=== PATIENT | female | born 1990 | race Caucasian/White ===

== ENCOUNTER 2018-04-19 19:08 | Emergency (ER) | payer BC ==
[2018-04-19] MEDS ORDERED: KETOROLAC 30 MG/ML 1 ML VIAL IVP STA (19:58)
[2018-04-19] MEDS ORDERED: ONDANSETRON 4 MG/2 ML VIAL IVP STA (19:58)
[2018-04-19] MEDS ORDERED: SODIUM CHLORIDE 0.9% 1,000 ML IV STA (19:58)
--- NOTE | 2018-04-19 20:33 | ED ---
General Adult HPI - General Source: patient, RN notes reviewed Mode of arrival: ambulatory Limitations: no limitations <Tee Edge P - Last Filed: 04/19/18 21:57> <Janessa Bravo P - Last Filed: 04/19/18 23:55> - General Chief complaint: Nausea/Vomiting/Diarrhea Stated complaint: Vomiting, chest pain Time Seen by Provider: 04/19/18 19:30 - History of Present Illness Initial comments: 27-year-old female presents to the emergency department for a chief complaint of abdominal pain x months. Patient states she was diagnosed with GERD. Patient states she had a endoscopy done 5 days ago. She states that 3 days ago patient started to have worsening pain. Patient describes the pain as a burning pain in her chest and epigastric area. Patient states she also often has nausea with this pain. Patient states she did vomit about 4 times today. Patient states she tried to contact her GI doctor but was unable to speak with them. Patient denies any shortness of breath or pleuritic chest pain. Patient has no other complaints at this time including shortness of breath, chest pain, headache, or visual changes. (Tee Edge) - Related Data Home Medications Medication Instructions Recorded Confirmed Acetaminophen [Tylenol Extra 1,000 mg PO Q6H PRN 04/19/18 04/19/18 Strength] Omeprazole 20 mg PO BID 04/19/18 04/19/18 Sucralfate [Carafate] 1 gm PO TID 04/19/18 04/19/18 Previous Rx's Medication Instructions Recorded Ondansetron [Zofran ODT] 4 mg PO Q8HR PRN #15 tab 04/19/18 Allergies Allergy/AdvReac Type Severity Reaction Status Date / Time No Known Allergies Allergy Verified 04/19/18 20:36 Review of Systems ROS Other: All systems not noted in ROS Statement are negative. <Tee Edge P - Last Filed: 04/19/18 21:57> ROS Other: All systems not noted in ROS Statement are negative. <Janessa Bravo P - Last Filed: 04/19/18 23:55> ROS Statement: Those systems with pertinent positive or pertinent negative responses have been documented in the HPI. Past Medical History Past Medical History: GERD/Reflux History of Any Multi-Drug Resistant Organisms: None Reported Past Surgical History: Tonsillectomy Past Psychological History: Anxiety Smoking Status: Never smoker Past Alcohol Use History: Heavy Past Drug Use History: None Reported <Tee Edge P - Last Filed: 04/19/18 21:57> General Exam Limitations: no limitations General appearance: alert, in no apparent distress Head exam: Present: atraumatic, normocephalic, normal inspection Eye exam: Present: normal appearance, PERRL, EOMI. Absent: scleral icterus, conjunctival injection, periorbital swelling ENT exam: Present: normal exam, mucous membranes moist Neck exam: Present: normal inspection, full ROM. Absent: tenderness, meningismus, lymphadenopathy, thyromegaly Respiratory exam: Present: normal lung sounds bilaterally. Absent: respiratory distress, wheezes, rales, rhonchi, stridor Cardiovascular Exam: Present: regular rate, normal rhythm, normal heart sounds. Absent: systolic murmur, diastolic murmur, rubs, gallop, clicks GI/Abdominal exam: Present: soft, tenderness (Tenderness noted in the epigastric and right upper quadrant areas, positive Dumont sign), guarding ( Guarding present in the epigastric and right upper quadrant area), normal bowel sounds. Absent: distended, rebound, rigid Neurological exam: Present: alert, oriented X3, CN II-XII intact Psychiatric exam: Present: normal affect, normal mood <Tee Edge P - Last Filed: 04/19/18 21:57> Vital Signs 04/19/18 04/19/18 19:11 22:13 Temperature 98.8 F 98.2 F Pulse Rate 101 H 87 Respiratory 18 19 Rate Blood Pressure 113/65 113/62 O2 Sat by Pulse 99 99 Oximetry Medical Decision Making - Lab Data Result diagrams: 04/19/18 20:23 04/19/18 20:23 <Tee Edge P - Last Filed: 04/19/18 21:57> - Lab Data Result diagrams: 04/19/18 20:23 04/19/18 20:23 <Janessa Bravo P - Last Filed: 04/19/18 23:55> - Medical Decision Making 27-year-old female presents to the emergency department for a chief complaint of burning epigastric and lower chest pain 2 months. Patient sates she had a scope done last week and is currently pending biopsies of her stomach and esophagus as there was inflammation. On exam patient does have epigastric and right upper quadrant tenderness. CBC and CMP are unremarkable. Acute abdominal x-ray shows a nonacute abdomen, normal chest. No sign of intestinal obstruction or pneumoperitoneum. Ultrasound of the gallbladder is negative. No gallstones or dilated ducts. No free fluid. Patient reevaluated, feeling much better at this time. Discussed possibility of obtaining CAT scan versus waiting for biopsy results. At this time patient would like to wait for biopsy results as she is feeling better. She will return if she has any worsening symptoms. She will follow up with primary care and her GI specialist in 1-2 days. (Tee Edge) I was available for consultation in the emergency department. The history and physical exam were done by the midlevel provider. I was consulted for this patient's care. I reviewed the case with the midlevel provider and based on their presentation of the patient, I agree with the assessment, medical decision making and plan of care as documented. (Janessa Bravo) - Lab Data Lab Results 04/19/18 04/19/18 04/19/18 Range/Units 20:23 20:23 20:23 WBC 8.4 (3.8-10.6) k/uL RBC 4.75 (3.80-5.40) m/uL Hgb 14.8 (11.4-16.0) gm/dL Hct 42.3 (34.0-46.0) % MCV 89.2 (80.0-100.0) fL MCH 31.1 (25.0-35.0) pg MCHC 34.9 (31.0-37.0) g/dL RDW 12.9 (11.5-15.5) % Plt Count 156 (150-450) k/uL Neutrophils % 89 % Lymphocytes % 4 % Monocytes % 4 % Eosinophils % 1 % Basophils % 0 % Neutrophils # 7.5 (1.3-7.7) k/uL Lymphocytes # 0.4 L (1.0-4.8) k/uL Monocytes # 0.4 (0-1.0) k/uL Eosinophils # 0.1 (0-0.7) k/uL Basophils # 0.0 (0-0.2) k/uL Sodium 137 (137-145) mmol/L Potassium 4.0 (3.5-5.1) mmol/L Chloride 105 (98-107) mmol/L Carbon Dioxide 23 (22-30) mmol/L Anion Gap 9 mmol/L BUN 12 (7-17) mg/dL Creatinine 0.63 (0.52-1.04) mg/dL Est GFR (CKD-EPI)AfAm >90 (>60 ml/min/1.73 sqM) Est GFR (CKD-EPI)NonAf >90 (>60 ml/min/1.73 sqM) Glucose 108 H (74-99) mg/dL Calcium 9.5 (8.4-10.2) mg/dL Total Bilirubin 0.9 (0.2-1.3) mg/dL AST 20 (14-36) U/L ALT 32 (9-52) U/L Alkaline Phosphatase 57 (38-126) U/L Total Protein 6.8 (6.3-8.2) g/dL Albumin 4.4 (3.5-5.0) g/dL Amylase 73 (30-110) U/L Lipase 139 (23-300) U/L Urine Color Urine Appearance (Clear) Urine pH (5.0-8.0) Ur Specific Hustler (1.001-1.035) Urine Protein (Negative) Urine Glucose (UA) (Negative) Urine Ketones (Negative) Urine Blood (Negative) Urine Nitrite (Negative) Urine Bilirubin (Negative) Urine Urobilinogen (<2.0) mg/dL Ur Leukocyte Esterase (Negative) Urine RBC (0-5) /hpf Urine WBC (0-5) /hpf Ur Squamous Epith Cells (0-4) /hpf Urine Bacteria (None) /hpf Urine Mucus (None) /hpf Urine HCG, Qual Not Detected (Not Detectd) 04/19/18 Range/Units 20:23 WBC (3.8-10.6) k/uL RBC (3.80-5.40) m/uL Hgb (11.4-16.0) gm/dL Hct (34.0-46.0) % MCV (80.0-100.0) fL MCH (25.0-35.0) pg MCHC (31.0-37.0) g/dL RDW (11.5-15.5) % Plt Count (150-450) k/uL Neutrophils % % Lymphocytes % % Monocytes % % Eosinophils % % Basophils % % Neutrophils # (1.3-7.7) k/uL Lymphocytes # (1.0-4.8) k/uL Monocytes # (0-1.0) k/uL Eosinophils # (0-0.7) k/uL Basophils # (0-0.2) k/uL Sodium (137-145) mmol/L Potassium (3.5-5.1) mmol/L Chloride (98-107) mmol/L Carbon Dioxide (22-30) mmol/L Anion Gap mmol/L BUN (7-17) mg/dL Creatinine (0.52-1.04) mg/dL Est GFR (CKD-EPI)AfAm (>60 ml/min/1.73 sqM) Est GFR (CKD-EPI)NonAf (>60 ml/min/1.73 sqM) Glucose (74-99) mg/dL Calcium (8.4-10.2) mg/dL Total Bilirubin (0.2-1.3) mg/dL AST (14-36) U/L ALT (9-52) U/L Alkaline Phosphatase (38-126) U/L Total Protein (6.3-8.2) g/dL Albumin (3.5-5.0) g/dL Amylase (30-110) U/L Lipase (23-300) U/L Urine Color Light Yellow Urine Appearance Clear (Clear) Urine pH 5.5 (5.0-8.0) Ur Specific Hustler 1.008 (1.001-1.035) Urine Protein Negative (Negative) Urine Glucose (UA) Negative (Negative) Urine Ketones Trace H (Negative) Urine Blood Negative (Negative) Urine Nitrite Negative (Negative) Urine Bilirubin Negative (Negative) Urine Urobilinogen <2.0 (<2.0) mg/dL Ur Leukocyte Esterase Moderate H (Negative) Urine RBC 3 (0-5) /hpf Urine WBC 5 (0-5) /hpf Ur Squamous Epith Cells 3 (0-4) /hpf Urine Bacteria Moderate H (None) /hpf Urine Mucus Rare H (None) /hpf Urine HCG, Qual (Not Detectd) Disposition Is patient prescribed a controlled substance at d/c from ED?: No Time of Disposition: 21:58 <Tee Edge - Last Filed: 04/19/18 21:57> <Janessa Bravo P - Last Filed: 04/19/18 23:55> Clinical Impression: Abdominal pain Disposition: HOME SELF-CARE Condition: Good Instructions: Abdominal Pain (ED) Additional Instructions: Please follow up with primary care and/or GI specialist in 1-2 days. Take Zofran as needed for nausea. Continue to take your home medications prescribed by GI. Return to the emergency department if you have any worsening symptoms. Prescriptions: Ondansetron [Zofran ODT] 4 mg PO Q8HR PRN #15 tab PRN Reason: Nausea Referrals: Eren Lujan MD [Primary Care Provider] - 1-2 days Addendum entered and electronically signed by Tee Edge PAAna 04/19/18 23 :43: Normal sinus rhythm, Ventricular rate 90, OK interval 142, QTC 450
[2018-04-19 20:37] LABS: Basophils % (A) 0 %; Eosinophils # (A) 0.1 k/uL (0-0.7); Eosinophils % (A) 1 %; HCT 42.3 % (34.0-46.0); HGB 14.8 gm/dL (11.4-16.0); Lymphocytes # (A) 0.4 k/uL (1.0-4.8); Lymphocytes % (A) 4 %; MCH 31.1 pg (25.0-35.0); MCHC 34.9 g/dL (31.0-37.0); MCV 89.2 fL (80.0-100.0); Mean Platelet Volume 7.7; Monocytes # (A) 0.4 k/uL (0-1.0); Monocytes % (A) 4 %; Neutrophils # (A) 7.5 k/uL (1.3-7.7); Neutrophils % (A) 89 %; Platelet Count 156 k/uL (150-450); RBC 4.75 m/uL (3.80-5.40); RDW 12.9 % (11.5-15.5); WBC 8.4 k/uL (3.8-10.6)
[2018-04-19 20:44] LABS: ALT 32 U/L (9-52); AST 20 U/L (14-36); Albumin 4.4 g/dL (3.5-5.0); Alkaline Phosphatase 57 U/L (38-126); Amylase 73 U/L (30-110); Anion Gap 9 mmol/L; Blood Urea Nitrogen 12 mg/dL (7-17); Calcium 9.5 mg/dL (8.4-10.2); Carbon Dioxide 23 mmol/L (22-30); Chloride 105 mmol/L (98-107); Glucose 108 mg/dL (74-99); Lipase 139 U/L (23-300); Sodium 137 mmol/L (137-145); Total Bilirubin 0.9 mg/dL (0.2-1.3); Total Protein 6.8 g/dL (6.3-8.2)
[2018-04-19 20:52] LABS: Appearance,Urine Clear (Clear); Bacteria,Urine Moderate /hpf; Bilirubin,Urine Negative (Negative); Blood,Urine Negative (Negative); Color,Urine Light Yellow; Glucose,Urine (UA) Negative (Negative); Ketones,Urine Trace (Negative); Leukocyte Esterase,Urine Moderate (Negative); Mucus,Urine Rare /hpf; Nitrite,Urine Negative (Negative); PH, Urine 5.5 (5.0-8.0); Protein,Urine Negative (Negative); RBC,Urine 3 /hpf (0-5); Specific Gravity,Urine 1.008 (1.001-1.035); Squamous Epithelial Cell,Urine 3 /hpf (0-4); Urobilinogen,Urine <2.0 mg/dL (<2.0); WBC,Urine 5 /hpf (0-5)
--- NOTE | 2018-04-19 21:16 | XR ---
EXAMINATION TYPE: XR abdomen acute w cxr DATE OF EXAM: 04/19/2018 COMPARISON: NONE HISTORY: Chest pain TECHNIQUE: Chest x-ray with supine and upright abdomen FINDINGS: Heart and mediastinum are normal. Lungs are clear. Diaphragm is normal. Bony thorax appears normal. B owel gas pattern is normal. There is no sign of intestinal obstruction or pneumoperitoneum. Fecal pat tern is normal. There are no pathologic calcifications over the kidneys. IMPRESSION: Nonacute abdomen. Normal chest.
--- NOTE | 2018-04-19 21:17 | US ---
EXAMINATION TYPE: US abdomen limited DATE OF EXAM: 04/19/2018 COMPARISON: NONE CLINICAL HISTORY: Pain. Pain, nausea and vomiting. EXAM MEASUREMENTS: Liver Length: 14.3 cm Gallbladder Wall: 0.2 cm CBD: 0.4 cm Right Kidney: 9.6 x 4.3 x 3.5 cm Pancreas: wnl Liver: wnl Gallbladder: No stones seen Evidence for sonographic Dumont's sign: No CBD: wnl Right Kidney: wnl IMPRESSION: Negative right upper quadrant abdominal sonogram. No gallstones or dilated ducts. No free fluid.
[2018-04-19] MEDS ORDERED: MAG HYDROX/AL HYDROX/SIMETH 30 ML, HYOSCYAMINE ELIXIR 10 ML, CIMETIDINE HCL 300 MG, LID... PO STA ×4 (21:40)
[2018-04-19] MEDS ORDERED: ONDANSETRON 4 MG ODT STARTER PACK 2 TAB BTL PO STA (21:59)
[2018-04-19 22:16] VITALS: BP 113/62; PULSE 87; RESP 19; TEMP 98.2
== END 2018-04-19 22:13 | disposition home or self-care (01) ==
LOC: EC 19:08
DX: R10.13 Epigastric pain (principal); R11.2 Nausea with vomiting, unspecified; K21.9 Gastro-esophageal reflux disease without esophagitis; Z98.890 Other specified postprocedural states; Z79.899 Other long term (current) drug therapy
CPT/HCPCS: 36415; 93005; 80053; 82150; 83690; 85025; 81001; 81025; 87086; 74022; 76705; 99284; 96374; 96375; 96361; J2405; J1885; S0119

== ENCOUNTER → 2019-06-06 | Outpatient (CLI) | payer BC ==
--- NOTE | 2019-06-06 14:32 | US ---
EXAMINATION TYPE: US pelvic complete DATE OF EXAM: 06/06/2019 COMPARISON: NONE CLINICAL HISTORY: R10.9 abdominal pain. pelvic pain, skipping cycles TECHNIQUE: TA. Transabdominal sonographic images of the pelvis were acquired. Date of LMP: 04/30/2019, skipped May EXAM MEASUREMENTS: Uterus: 7.0 x 5.1 x 4.4 cm Endometrial Stripe: 0.9 cm Right Ovary: 3.1 x 2.3 x 2.5cm Left Ovary: 4.0 x 2.5 x 2.7cm 1. Uterus: Anteverted wnl 2. Endometrium: wnl 3. Right Ovary: wnl 4. Left Ovary: wnl 5. Bilateral Adnexa: wnl 6. Posterior cul-de-sac: wnl IMPRESSION: Unremarkable pelvic ultrasound. No abnormal endometrial thickening.
== END | disposition home or self-care (01) ==
LOC: RADUSWWP 12:50
PROVIDERS: ATTEND Family Medicine
DX: R10.9 Unspecified abdominal pain (principal)
CPT/HCPCS: 76856

== ENCOUNTER → 2020-05-04 | Outpatient (CLI) | payer BC ==
[2020-05-04 17:30] LABS: ALT 45 U/L (8-44); AST 34 U/L (13-35)
== END | disposition home or self-care (01) ==
LOC: LABWHC1 08:57
PROVIDERS: ATTEND Obstetrics & Gynecology
DX: L50.9 Urticaria, unspecified (principal)
CPT/HCPCS: 36415; 82239; 84450; 84460

== ENCOUNTER 2020-05-23 17:00 | Inpatient (IN) | payer BC ==
[2020-05-23] MEDS ORDERED: DINOPROSTONE 10 MG INSERT.ER VAGINAL ONE (19:21)
[2020-05-23] MEDS ORDERED: OXYTOCIN 10 UNIT/ML 1 ML VIAL IM PRN (20:26)
[2020-05-23] MEDS ORDERED: METHYLERGONOVINE 0.2 MG/ML 1 ML AMP IM PRN (20:26)
[2020-05-23] MEDS ORDERED: LIDOCAINE 0.5% (PF) 5 MG/ML (50 ML SDV) SQ PRN (20:26)
[2020-05-23] MEDS ORDERED: PENICILLIN G POTASSIUM 5,000,000 UNIT in DEXTROSE 5% IN WATER 100 ML IVPB STA ×2 (20:26)
[2020-05-23] MEDS ORDERED: TERBUTALINE 1 MG/ML VIAL SQ PRN (20:26)
[2020-05-23] MEDS ORDERED: CARBOPROST TROMETHAMINE 250 MCG/ML 1 ML AMP IM PRN (20:26)
[2020-05-23] MEDS ORDERED: BUTORPHANOL 1 MG/ML 1 ML VIAL IV PRN (20:28)
[2020-05-23] MEDS ORDERED: OXYTOCIN 30 UNITS/500 ML NS 30 UNIT in SALINE 1 500ML.BAG IV SCH (20:30)
--- NOTE | 2020-05-23 20:33 | P.HPOB ---
History of Present Illness H&P Date: 05/23/20 Chief Complaint: 37-0/7 weeks, cholestasis of The patient is a 29-year-old 1 para 0 admitted at 37-0/7 weeks as established by 6 week ultrasound. She is admitted for Cervidil cervical ripening and possible Pitocin induction for the diagnosis of cholestasis of which was discovered earlier this week. testing has been reassuring and there is a category 1 heart rate tracing currently. Her has otherwise been uncomplicated though she is known to be group B strep positive. Obstetrical history: 1 para 0 with current statistics listed in history present illness. EDC of 06/13/2020 was established by 6 week ultrasound. Laboratory workup demonstrates a blood type of O+ with a negative antibody screen. Rubella status is immune. The remainder of the laboratory workup was within normal limits. One hour Glucola was elevated but followed by a normal three-hour glucose tolerance test. Group B strep status is negative. Gynecologic history: Unremarkable with no history of any infections to include STDs. Review of Systems Review of systems is confined to history of present illness. Past Medical History Past Medical History: GERD/Reflux History of Any Multi-Drug Resistant Organisms: None Reported Past Surgical History: Tonsillectomy Additional Past Surgical History / Comment(s): Aroda teeth. Past Anesthesia/Blood Transfusion Reactions: No Reported Reaction Past Psychological History: Anxiety Smoking Status: Never smoker Past Alcohol Use History: Heavy Past Drug Use History: None Reported - Past Family History Father Family Medical History: Diabetes Mellitus Medications and Allergies Home Medications Medication Instructions Recorded Confirmed Type Acetaminophen [Tylenol Extra 1,000 mg PO Q6H PRN 04/19/18 05/23/20 History Strength] Omeprazole 20 mg PO BID 04/19/18 05/23/20 History Allergies Allergy/AdvReac Type Severity Reaction Status Date / Time No Known Allergies Allergy Verified 05/23/20 19:19 Exam Vital Signs Temp Pulse Resp BP Pulse Ox 05/23/20 19:21 96.8 F L 90 16 128/73 97 05/23/20 19:18 96.8 F L 90 16 128/73 97 Intake and Output 05/23/20 05/23/20 05/23/20 06:59 14:59 22:59 Other: Weight 63.503 kg In general, this is a well-developed, well-nourished white female in no acute distress. Her heart has a regular rhythm and rate without murmur. Her lungs are clear to auscultation bilaterally in all kam. Her abdomen is gravid, nondistended, has normal active bowel sounds, soft, nontender, and without any palpable masses aside from uterine fundus. Her extremities are without any cyanosis, clubbing, or edema and are nontender to palpation bilaterally. Digital cervical examination demonstrates her cervix to be fingertip, 70% effac ed, with the vertex in presentation at -2 station. The cervix is extremely posterior and difficult to reach. Cervidil is placed in the posterior cul-de-sac per protocol. Assessment and Plan (1) Cholestasis of Current Visit: Yes Status: Acute Code(s): O26.619 - LIVER AND BILIARY TRACT DISORD IN , UNSP TRIMESTER; K83.1 - OBSTRUCTION OF BILE DUCT SNOMED Code(s): 819383247 (2) Group B streptococcal infection in Current Visit: Yes Status: Acute Code(s): O98.819 - OTH MATERNAL INFEC/PARASTC DISEASES COMP PREG, UNSP TRI; B95.1 - STREPTOCOCCUS, GROUP B, CAUSING DISEASES CLASSD [id number] SNOMED Code(s): 047879268 (3) Term Current Visit: Yes Status: Acute Code(s): Z34.90 - ENCNTR FOR SUPRVSN OF NORMAL , UNSP, UNSP TRIMESTER SNOMED Code(s): 56198052 Plan: The patient is admitted for Cervidil cervical ripening to be followed by Pitocin if necessary. Risks and, occasions the procedure been thoroughly discussed and she has understood and agreed to proceed. Cervidil has been placed and we will plan to begin Pitocin at 0600 hrs. should it be necessary. She will have close maternal and surveillance and expectant management will be practiced. She is a good candidate for either IV or epidural analgesia, whichever she may choose. Group B strep prophylaxis will be started with the onset of labor.
[2020-05-23 20:52] LABS: Basophils % (A) 0 %; Eosinophils # (A) 0.1 k/uL (0-0.7); Eosinophils % (A) 1 %; HCT 39.4 % (34.0-46.0); Lymphocytes # (A) 1.4 k/uL (1.0-4.8); Lymphocytes % (A) 16 %; MCH 30.8 pg (25.0-35.0); MCV 93.3 fL (80.0-100.0); Mean Platelet Volume 9.5; Monocytes # (A) 0.8 k/uL (0-1.0); Monocytes % (A) 9 %; Neutrophils # (A) 6.4 k/uL (1.3-7.7); Neutrophils % (A) 73 %; Platelet Count 200 k/uL (150-450); RBC 4.22 m/uL (3.80-5.40); RDW 12.6 % (11.5-15.5); WBC 8.8 k/uL (3.8-10.6)
[2020-05-23] MEDS ORDERED: diphenhydrAMINE 50 MG/ML 1 ML VIAL IVP PRN (21:25)
[2020-05-24] MEDS ORDERED: PENICILLIN G POTASSIUM 2,500,000 UNIT in DEXTROSE 5% IN WATER 100 ML IVPB SCH ×2 (00:28)
[2020-05-24] MEDS: LACTATED RINGERS 1,000 ML IV SCH ×3 (06:30→13:30)
[2020-05-24] MEDS: PENICILLIN G POTASSIUM 2,500,000 UNIT in DEXTROSE 5% IN WATER 100 ML IVPB SCH ×6 (10:31→20:27)
[2020-05-24] MEDS ORDERED: SODIUM CHLORIDE 0.9% 100 ML BAG ONE (12:30)
[2020-05-24] MEDS ORDERED: ROPIVACAINE 5MG/ML 20ML VIAL ONE (12:30)
[2020-05-24] MEDS ORDERED: fentaNYL (PF) 50 MCG/ML 5 ML AMP ONE (12:30)
[2020-05-24] MEDS ORDERED: ROPIVACAINE 100 MG, fentaNYL (PF) 200 MCG in SODIUM CHLORIDE 0.9% 76 ML EPIDURAL ONE (13:12)
[2020-05-24] MEDS ORDERED: LANOLIN CREAM 5 GM TUBE TOPICAL PRN (17:27)
[2020-05-24] MEDS ORDERED: BENZOCAINE/MENTHOL SPRAY 1 GM/SPRAY AEROSOL TOPICAL PRN (17:27)
[2020-05-24] MEDS ORDERED: HYDROCORTISONE 2.5% RECTAL CREAM 30 GM TUBE RECTAL PRN (17:27)
[2020-05-24] MEDS ORDERED: diphenhydrAMINE 50 MG/ML 1 ML VIAL IVP PRN ×2 (17:27)
[2020-05-24] MEDS ORDERED: diphenhydrAMINE 25 MG CAP PO PRN (17:27)
[2020-05-24] MEDS ORDERED: diphenhydrAMINE 50 MG CAP PO PRN (17:27)
[2020-05-24] MEDS ORDERED: SIMETHICONE 80 MG CHEWABLE PO PRN (17:27)
[2020-05-24] MEDS ORDERED: ZOLPIDEM 5 MG TAB PO PRN (17:27)
[2020-05-24] MEDS ORDERED: OXYTOCIN 30 UNITS/500 ML NS 30 UNIT in SALINE 1 500ML.BAG IV SCH (17:30)
--- NOTE | 2020-05-24 17:31 | P.PROBDLV ---
Vaginal Delivery Note - . Vaginal Delivery Note: The patient is a 29-year-old 1 para 0 admitted at 37 and one sevenths weeks by good dating parameters. She is admitted for induction of labor initially with Cervidil cervical ripening to be followed by Pitocin induction secondary to the diagnosis of cholestasis of . She had Cervidil placed last night and did make some progress through the night such that her cervix this morning was 2 cm and 80% effaced at which time artificial rupture of membranes is carried out demonstrating clear fluid. Pitocin augmentation Tylor been started as had antibody prophylaxis as she was group B strep positive. She made average progress through the latent phase of labor to approximate 4-5 cm after which time she had an epidural catheter placed for analgesia. She then made steady progress through the afternoon to complete and pushed over the course of approximately 1-1-1/2 hours to a normal spontaneous vaginal delivery of a viable 6 lbs. 10 oz. baby girl with Apgars of 9 at 1 minute and 9 at 5 minutes delivered in the direct occiput anterior position. There was a loose nuchal cord 1 which was reduced following delivery of the . The placenta was delivered spontaneously, intact, and grossly normal with a grossly normal three-vessel cord inserted approximate 1 cm from the margin of the placental disc. A second-degree midline episiotomy had been cut for delivery as the patient was going to have a laceration and was exhausted. She delivered over the next contraction. The episiotomy did not extend and was repaired in standard fashion with 3-0 chromic catgut without difficulty. Estimated blood loss for the entire case was approximately 250 mL. There were no complications. All sponge, instrument, needle counts were correct. Both mother and are resting comfortably in recovery.
[2020-05-24] MEDS: IBUPROFEN 600 MG TAB PO PRN (19:45)
[2020-05-24] MEDS: SENNOSIDES-DOCUSATE SODIUM 1 EACH TAB PO SCH (19:45)
[2020-05-25] MEDS: IBUPROFEN 600 MG TAB PO PRN ×3 (01:04→15:32)
[2020-05-25] MEDS: ACETAMINOPHEN TAB 325 MG TAB PO PRN ×2 (04:15→11:55)
[2020-05-25 06:35] LABS: Basophils % (A) 0 %; Eosinophils # (A) 0.1 k/uL (0-0.7); Eosinophils % (A) 1 %; HCT 33.9 % (34.0-46.0); HGB 11.4 gm/dL (11.4-16.0); Lymphocytes # (A) 1.7 k/uL (1.0-4.8); Lymphocytes % (A) 13 %; MCH 31.3 pg (25.0-35.0); MCHC 33.7 g/dL (31.0-37.0); MCV 92.8 fL (80.0-100.0); Mean Platelet Volume 9.6; Monocytes # (A) 0.9 k/uL (0-1.0); Monocytes % (A) 7 %; Neutrophils # (A) 10.3 k/uL (1.3-7.7); Neutrophils % (A) 78 %; Platelet Count 165 k/uL (150-450); RBC 3.65 m/uL (3.80-5.40); RDW 12.7 % (11.5-15.5); WBC 13.2 k/uL (3.8-10.6)
[2020-05-25] MEDS: SENNOSIDES-DOCUSATE SODIUM 1 EACH TAB PO SCH (08:00)
--- NOTE | 2020-05-25 11:13 | P.DS ---
Providers Date of admission: 05/23/20 19:00 Expected date of discharge: 05/25/20 Attending physician: David Wynne Primary care physician: Stated None - Discharge Diagnosis(es) (1) Cholestasis of Current Visit: Yes Status: Acute (2) Group B streptococcal infection in Current Visit: Yes Status: Acute (3) Term Current Visit: Yes Status: Acute (4) Normal spontaneous vaginal delivery Current Visit: Yes Status: Acute Hospital Course: The patient is a 29 year 1 para 0 initially admitted at 37-0/7 weeks for induction at 37 and one sevenths weeks. She is admitted with good dating parameters for cervical ripening with Cervidil as her cervix is unfavorable secondary to a diagnosis of cholestasis of . Her was otherwise uncomplicated and group B strep status is positive. She had Cervidil placed overnight and did make adequate progress to allow for artificial rupture of membranes in the morning. She additionally had antibody prophylaxis started along with Pitocin augmentation. Artificial rupture of membranes demonstrate clear fluid. She made progress into the active phase of labor when an epidural catheter was placed for analgesia. She then progressed to complete and pushed over the course of approximate 1-1-1/2 hours to a normal spontaneous vaginal delivery of a viable 6 lbs. 10 oz. baby girl with Apgars of 9 at 1 minute and 9 at 5 minutes. Her course was unremarkable with vital signs or any stable and her temperature was afebrile throughout. She was deemed stable for discharge on day #1 was discharged home to follow-up in the office in 6 weeks' time routinely. Discharge instructions included calling for any significantly increased bleeding or foul-smelling lochia, significantly increased fever abdominal pain, perineal complaints, breast complaints, or anything also concerned her. She is additionally instructed to have nothing in the vagina for at least 6 weeks time to include intercourse. She understood her instructions and agrees to follow up as noted above. Discharge medications included only [id number] analgesic pain medications as well as continued vitamins as she has opted to breast-feed. Maternal blood type is O+ and rubella status is immune. Procedures: #1. Cervidil cervical ripening #2. Pitocin augmentation #3. Antibiotic prophylaxis #4. Artificial rupture of membranes #5. Epidural analgesia #. Normal spontaneous vaginal delivery #. Second-degree midline episiotomy and repair Patient Condition at Discharge: Stable Plan - Discharge Summary New Discharge Prescriptions: No Action Omeprazole 20 mg PO BID Acetaminophen [Tylenol Extra Strength] 1,000 mg PO Q6H PRN PRN Reason: Pain Discharge Medication List Acetaminophen [Tylenol Extra Strength] 1,000 mg PO Q6H PRN 04/19/18 [History] Omeprazole 20 mg PO BID 04/19/18 [History] Follow up Appointment(s)/Referral(s): David Wynne MD [STAFF PHYSICIAN] - 6 Weeks Discharge Disposition: HOME SELF-CARE
[2020-05-25 16:40] VITALS: BP 107/66; PULSE 80; RESP 16; TEMP 97.4
== END 2020-05-25 17:30 | disposition home or self-care (01) | DRG 805 ==
LOC: 4FBP 19:00
PROVIDERS: ADMIT Obstetrics & Gynecology; ATTEND Obstetrics & Gynecology
PROC: 10E0XZZ Delivery of Products of Conception, External Approach (ICD-10-PCS; principal; 2020-05-24)
PROC: 0KQM0ZZ Repair Perineum Muscle, Open Approach (ICD-10-PCS; 2020-05-24)
PROC: 10907ZC Drainage of Amniotic Fluid, Therapeutic from Products of Conception, Via Natural or Artificial Opening (ICD-10-PCS; 2020-05-24)
PROC: 0W8NXZZ Division of Female Perineum, External Approach (ICD-10-PCS; 2020-05-24)
DX: O26.62 Liver and biliary tract disorders in childbirth (principal); K83.1 Obstruction of bile duct; Z37.0 Single live birth; Z3A.37 37 weeks gestation of pregnancy; O99.824 Streptococcus B carrier state complicating childbirth; O69.81X0 Labor and delivery complicated by cord around neck, without compression, not applicable or unspecified; K21.9 Gastro-esophageal reflux disease without esophagitis; O99.62 Diseases of the digestive system complicating childbirth
CPT/HCPCS: 85025; 86850; 86900; 86901; 88307

== ENCOUNTER 2023-02-05 17:11 | Emergency (ER) | payer BC ==
--- NOTE | 2023-02-05 17:40 | ED ---
General Adult HPI - General Source: patient Mode of arrival: ambulatory Limitations: no limitations <Taylor Mayorga - Last Filed: 02/05/23 17:39> - General Source: patient, RN notes reviewed, old records reviewed <Rl Rowan - Last Filed: 02/09/23 21:02> - General Chief complaint: Extremity Problem,Nontraumatic Stated complaint: Poss leg blood clot Time Seen by Provider: 02/05/23 19:10 - History of Present Illness Initial comments: 32-year-old female presents emergency department complaining of bruising on her posterior legs. She states that she noticed this today. She also admits to shooting pain down her right calf. She is currently breast-feeding. (Taylor Mayorga) This is a 32-year-old female who comes emergency Department stating that she's been having some achiness last couple of days. Patient noticed today shows bruising on the posterior aspect of both upper legs which isn't tender to touch. Patient states she's not sure if his bruising but it certainly looks like to her. Patient denies any injury or anything she's done to find a cause of bruising. Patient denies any other sites of bruising anywhere. Patient denies any sites of bleeding. Patient denies any fever chills or cough. Patient den ies any swelling to legs any areas of redness any calf pain. Patient denies any joint pain. (Rl Rowan) - Related Data Home Medications Medication Instructions Recorded Confirmed Sertraline [Zoloft] 50 mg PO HS 02/05/23 02/05/23 Previous Rx's Medication Instructions Recorded Acetaminophen Tab [Tylenol] 650 mg PO Q6H PRN #30 tab 06/07/22 Ibuprofen [Motrin] 600 mg PO Q6HR PRN #30 tab 06/07/22 Allergies Allergy/AdvReac Type Severity Reaction Status Date / Time No Known Allergies Allergy Verified 02/05/23 20:10 Review of Systems ROS Other: All systems not noted in ROS Statement are negative. <Taylor Mayorga - Last Filed: 02/05/23 17:39> ROS Other: All systems not noted in ROS Statement are negative. <Rl Rowan - Last Filed: 02/09/23 21:02> ROS Statement: Those systems with pertinent positive or pertinent negative responses have been documented in the HPI. Past Medical History Past Medical History: GERD/Reflux History of Any Multi-Drug Resistant Organisms: None Reported Past Surgical History: Tonsillectomy Additional Past Surgical History / Comment(s): [place] teeth. Past Anesthesia/Blood Transfusion Reactions: No Reported Reaction Past Psychological History: Anxiety Smoking Status: Never smoker Past Alcohol Use History: None Reported Past Drug Use History: None Reported - Past Family History Father Family Medical History: Diabetes Mellitus <Taylor Mayorga - Last Filed: 02/05/23 17:39> General Exam Limitations: no limitations <Taylor Mayorga - Last Filed: 02/05/23 17:39> <Rl Rowan - Last Filed: 02/09/23 21:02> - General Exam Comments Initial Comments: Visual Physical Exam Vital signs reviewed General: Well-appearing, nontoxic, no acute distress. Head: Normocephalic, atraumatic Eyes: PERRLA, EOMI ENT: Airway patent Chest: Nonlabored breathing Skin: No visual rash, normal skin tone Neuro: Alert and oriented 3 Musculoskeletal: No gross abnormalities (Taylor Mayorga) GENERAL: Patient is well-developed and well-nourished. Patient is nontoxic and well- hydrated and is in no acute distress. ENT: Neck is soft and supple. No significant lymphadenopathy is noted. Oropharynx is clear. Moist mucous membranes. Neck has full range of motion without eliciting any pain. EYES: The sclera were anicteric and conjunctiva were pink and moist. Extraocular movements were intact and pupils were equal round and reactive to light. Eyeli ds were unremarkable. PULMONARY: Unlabored respirations. Good breath sounds bilaterally. No audible rales rhonchi or wheezing was noted. CARDIOVASCULAR: There is a regular rate and rhythm without any murmurs gallops or rubs. ABDOMEN: Soft and nontender with normal bowel sounds. SKIN: Patient has bruising to both thighs the posterior aspect. The areas are not tender. Patient has no other bruising anywhere. NEUROLOGIC: Patient is alert and oriented x3. Cranial nerves II through XII are grossly intact. Motor and sensory are also intact. Normal speech, volume and content. Symmetrical smile. MUSCULOSKELETAL: Normal extremities with adequate strength and full range of motion. No lower extremity swelling or edema. No calf tenderness. LYMPHATICS: No significant lymphadenopathy is noted PSYCHIATRIC: Normal psychiatric evaluation. (Rl Rowan) Course Vital Signs 02/05/23 02/05/23 17:32 21:22 Temperature 97.7 F 97.8 F Pulse Rate 69 71 Respiratory 16 16 Rate Blood Pressure 122/80 119/79 O2 Sat by Pulse 98 98 Oximetry Medical Decision Making <Taylor Mayorga - Last Filed: 02/05/23 17:39> - Lab Data Result diagrams: 02/05/23 19:18 02/05/23 19:18 <Rl Rowan - Last Filed: 02/09/23 21:02> - Medical Decision Making I preformed the quick note portion of this chart. Electronically signed by Taylor Mayorga PA-C (Taylor Mayorga) Was pt. sent in by a medical professional or institution ([facility], [facility], urgent care, hospital, or jail...) When possible be specific @ -No Did you speak to anyone other than the patient for history (EMS, parent, family, police, friend...)? What history was obtained from this source @ -No Did you review nursing and triage notes (agree or disagree)? Why? @ -I reviewed and agree with nursing and triage notes Were old charts reviewed (outside hosp., previous admission, EMS record, old EKG, old radiological studies, urgent care reports/EKG's, jail records)? Report findings @ -No old charts were reviewed Differential Diagnosis (chest pain, altered mental status, abdominal pain women, abdominal pain men, vaginal bleeding, weakness, fever, dyspnea, syncope, headache, dizziness, GI bleed, back pain, seizure, CVA, palpatations, mental health, musculoskeletal)? @ -Rhabdomyolysis, vitamin deficiency, ITP, coagulopathy, trauma this is not all inclusive list EKG interpreted by me (3pts min.). @ -As above X-rays interpreted by me (1pt min.). @ -None done CT interpreted by me (1pt min.). @ -None done U/S interpreted by me (1pt. min.). @ -None done What testing was considered but not performed or refused? (CT, X-rays, U/S, labs)? Why? @ -None What meds were considered but not given or refused? Why? @ -None Did you discuss the management of the patient with other professionals (professionals i.e. DrAriadna, PA, [facility], lab, RT, psych nurse, rn social work, contaminated land consultant, teacher, business liaison officer, case filler)? Give summary @ -No Was smoking cessation discussed for >3mins.? @ -No Was critical care preformed (if so, how long)? @ -No Were there social determinants of health that impacted care today? How? (Homelessness, low income, unemployed, alcoholism, drug addiction, transportation, low edu. Level, literacy, decrease access to med. care, care home, rehab)? @ -No Was there de-escalation of care discussed even if they declined (Discuss DNR or withdrawal of care, Hospice)? DNR status @ -No What co-morbidities impacted this encounter? (DM, HTN, Smoking, COPD, CAD, Cancer, CVA, ARF, Chemo, Hep., AIDS, mental health diagnosis, sleep apnea, morbid obesity)? @ -None Was patient admitted / discharged? Hospital course, mention meds given and route, prescriptions, significant lab abnormalities, going to OR and other pertinent info. @ -Lab work was normal. I will back and reevaluated the patient's she ind icated it might be from her sitting in the stool recently that she was getting bruising to the back the legs but she is not convinced that. Patient will follow-up with her primary medical care doctor. Undiagnosed new problem with uncertain prognosis? @ -No Drug Therapy requiring intensive monitoring for toxicity (Heparin, Nitro, Insulin, Cardizem)? @ -No Were any procedures done? @ -No Diagnosis/symptom? @ -Contusions legs Acute, or Chronic, or Acute on Chronic? @ -Acute Uncomplicated (without systemic symptoms) or Complicated (systemic symptoms)? @ -Complicated Side effects of treatment? @ -No Exacerbation, Progression, or Severe Exacerbation? @ -No Poses a threat to life or bodily function? How? (Chest pain, [place], [place], pneumonia, PE, COPD, DKA, ARF, appy, cholecystitis, CVA, Diverticulitis, Homicidal, Suicidal, threat to staff... and all critical care pts) @ -No (Rl Rowan) - Lab Data Lab Results 02/05/23 02/05/23 02/05/23 Range/Units 19:18 19:18 19:18 WBC 5.7 (3.8-10.6) k/uL RBC 4.74 (3.80-5.40) m/uL Hgb 14.1 (11.4-16.0) gm/dL Hct 43.0 (34.0-46.0) % MCV 90.7 (80.0-100.0) fL MCH 29.8 (25.0-35.0) pg MCHC 32.9 (31.0-37.0) g/dL RDW 12.4 (11.5-15.5) % Plt Count 210 (150-450) k/uL MPV 8.0 Neutrophils % 54 % Lymphocytes % 34 % Monocytes % 8 % Eosinophils % 1 % Basophils % 0 % Neutrophils # 3.1 (1.3-7.7) k/uL Lymphocytes # 1.9 (1.0-4.8) k/uL Monocytes # 0.4 (0-1.0) k/uL Eosinophils # 0.1 (0-0.7) k/uL Basophils # 0.0 (0-0.2) k/uL PT 10.6 (10.0-12.5) sec INR 1.0 (<1.2) APTT 26.2 (22.0-30.0) sec Sodium 140 (137-145) mmol/L Potassium 4.0 (3.5-5.1) mmol/L Chloride 106 (98-107) mmol/L Carbon Dioxide 24 (22-30) mmol/L Anion Gap 10 mmol/L BUN 15 (7-17) mg/dL Creatinine 0.61 (0.52-1.04) mg/dL Est GFR (CKD-EPI)AfAm >90 (>60 ml/min/1.73 sqM) Est GFR (CKD-EPI)NonAf >90 (>60 ml/min/1.73 sqM) Glucose 93 (74-99) mg/dL Calcium 9.5 (8.4-10.2) mg/dL Total Bilirubin 0.5 (0.2-1.3) mg/dL AST 26 (14-36) U/L ALT 18 (4-34) U/L Alkaline Phosphatase 111 (38-126) U/L Creatine Kinase 134 (30-135) U/L C-Reactive Protein <0.5 (<1.0) mg/dL Total Protein 7.1 (6.3-8.2) g/dL Albumin 4.7 (3.5-5.0) g/dL Vitamin B12 558.0 (200.0-944.0) pg/mL Disposition <Taylor Mayorga - Last Filed: 02/05/23 17:39> Is patient prescribed a controlled substance at d/c from ED?: No Time of Disposition: 21:10 <Rl Rowan - Last Filed: 02/09/23 21:02> Clinical Impression: Contusion of leg Disposition: HOME SELF-CARE Instructions (If sedation given, give patient instructions): Contusion in Adults (ED) Referrals: None,Stated [REFERRING] - 1-2 days
[2023-02-05 17:49] VITALS: RESP 16
--- NOTE | 2023-02-05 18:37 | US ---
EXAMINATION TYPE: US venous doppler duplex LE RT DATE OF EXAM: 02/05/2023 6:25 PM COMPARISON: NONE CLINICAL INDICATION: Female, 32 years old with history of pain; Pt has a patch of bruise like discolo ration on bilateral posterior thighs. She said they do not hurt and doesn't recall any trauma. Pt sta desean shooting pain in rt leg today. No hx of DVT. Not on blood thinners SIDE PERFORMED: Right TECHNIQUE: The lower extremity deep venous system is examined utilizing real time linear array sonog andry with graded compression, doppler sonography and color-flow sonography. VESSELS IMAGED: Common Femoral Vein Deep Femoral Vein Greater Saphenous Vein * Femoral Vein Popliteal Vein Small Saphenous Vein * Proximal Calf Veins (* superficial vessels) FINDINGS: Grayscale, color doppler, spectral doppler imaging performed of the deep veins of the RLE. There is normal flow, compressibility, vascular waveforms. IMPRESSION: Right Lower Extremity: No evidence for DVT.
[2023-02-05 20:02] LABS: Basophils % (A) 0 %; Eosinophils # (A) 0.1 k/uL (0-0.7); Eosinophils % (A) 1 %; HGB 14.1 gm/dL (11.4-16.0); Lymphocytes # (A) 1.9 k/uL (1.0-4.8); Lymphocytes % (A) 34 %; MCH 29.8 pg (25.0-35.0); MCHC 32.9 g/dL (31.0-37.0); MCV 90.7 fL (80.0-100.0); Monocytes # (A) 0.4 k/uL (0-1.0); Monocytes % (A) 8 %; Neutrophils # (A) 3.1 k/uL (1.3-7.7); Neutrophils % (A) 54 %; Partial Thromboplastin Time 26.2 sec (22.0-30.0); Platelet Count 210 k/uL (150-450); Prothrombin Time 10.6 sec (10.0-12.5); RBC 4.74 m/uL (3.80-5.40); RDW 12.4 % (11.5-15.5); WBC 5.7 k/uL (3.8-10.6)
[2023-02-05 20:14] LABS: ALT 18 U/L (4-34); AST 26 U/L (14-36); African American GFR (CKD) >90 (>60 ml/min/1.73 sqM); Albumin 4.7 g/dL (3.5-5.0); Alkaline Phosphatase 111 U/L (38-126); Anion Gap 10 mmol/L; Blood Urea Nitrogen 15 mg/dL (7-17); Calcium 9.5 mg/dL (8.4-10.2); Carbon Dioxide 24 mmol/L (22-30); Chloride 106 mmol/L (98-107); Creatine Kinase 134 U/L (30-135); Glucose 93 mg/dL (74-99); Non-African American GFR(CKD) >90 (>60 ml/min/1.73 sqM); Sodium 140 mmol/L (137-145); Total Bilirubin 0.5 mg/dL (0.2-1.3); Total Protein 7.1 g/dL (6.3-8.2)
[2023-02-05 20:26] LABS: C Reactive Protein <0.5 mg/dL (<1.0)
[2023-02-05 21:26] VITALS: BP 119/79; PULSE 71; TEMP 97.8
== END 2023-02-05 21:23 | disposition home or self-care (01) ==
LOC: EC 17:11
DX: S70.11XA Contusion of right thigh, initial encounter (principal); S70.12XA Contusion of left thigh, initial encounter; F41.9 Anxiety disorder, unspecified; Z79.899 Other long term (current) drug therapy; X58.XXXA Exposure to other specified factors, initial encounter
CPT/HCPCS: 36415; 80053; 82550; 82607; 82652; 85025; 85610; 85730; 86140; 99284